=== PATIENT | male | born 1985 | race Caucasian/White ===

== ENCOUNTER 2017-06-15 10:40 | Emergency (ER) | payer OTHER ==
[2017-06-15 11:07] VITALS: RESP 18; TEMP 98
[2017-06-15] MEDS ORDERED: HYDROcodone/APAP 5-325MG 1 EACH TAB PO STA (12:09)
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
[2017-06-15 13:17] VITALS: BP 117/68; PULSE 72
== END 2017-06-15 13:17 | disposition home or self-care (01) ==
LOC: EC 10:40
DX: S02.40DA Maxillary fracture, left side, initial encounter for closed fracture (principal); S02.40FA Zygomatic fracture, left side, initial encounter for closed fracture; F17.200 Nicotine dependence, unspecified, uncomplicated; Z91.041 Radiographic dye allergy status; Z98.890 Other specified postprocedural states; Y04.0XXA Assault by unarmed brawl or fight, initial encounter
CPT/HCPCS: 70450; 70486; 72125; 99284

== ENCOUNTER 2017-06-19 12:28 | Emergency (ER) | payer OTHER ==
[2017-06-19 12:32] VITALS: BP 138/83; PULSE 59; RESP 18; TEMP 99.2
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
== END 2017-06-19 12:51 | disposition home or self-care (01) ==
LOC: EC 12:28
DX: S02.40 Fracture of malar, maxillary and zygoma bones, unspecified (principal); S02.402 Zygomatic fracture, unspecified side; Z76.0 Encounter for issue of repeat prescription; F17.200 Nicotine dependence, unspecified, uncomplicated; Z91.041 Radiographic dye allergy status; Y09 Assault by unspecified means
CPT/HCPCS: 99282

== ENCOUNTER 2017-07-05 22:11 | Emergency (ER) | payer OTHER ==
[2017-07-05 22:24] VITALS: BP 131/63; PULSE 89; RESP 20; TEMP 98.4
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
[2017-07-05] MEDS ORDERED: TOPICAL SKIN ADHESIVE 1 EACH AMP TOPICAL ONE (22:47)
--- NOTE | 2017-07-05 23:21 | XR ---
EXAM: XR Left Finger(s), 2 or More Views CLINICAL HISTORY: Reason: Pain TECHNIQUE: Frontal, lateral and oblique views of finger(s) of the left hand. COMPARISON: No relevant prior studies available. FINDINGS: Bones/joints: Unremarkable. No acute fracture. No dislocation. Soft tissues: Unremarkable. No radiopaque foreign body. Other findings: Metal ring noted about the proximal index finger. IMPRESSION: No acute findings.
== END 2017-07-05 22:57 | disposition home or self-care (01) ==
LOC: EC 22:11
DX: S61.211A Laceration without foreign body of left index finger without damage to nail, initial encounter (principal); F17.200 Nicotine dependence, unspecified, uncomplicated; Z91.040 Latex allergy status; W23.0XXA Caught, crushed, jammed, or pinched between moving objects, initial encounter
CPT/HCPCS: 12001; 99283

== ENCOUNTER 2019-05-23 19:55 | Emergency (ER) | payer OTHER ==
[2019-05-23] MEDS ORDERED: IBUPROFEN 600 MG TAB PO STA (20:13)
[2019-05-23] MEDS: ACETAMINOPHEN TAB 325 MG TAB PO STA ×2 (20:24→20:25)
--- NOTE | 2019-05-23 20:39 | XR ---
EXAMINATION TYPE: XR ankle complete RT DATE OF EXAM: 05/23/2019 COMPARISON: 11/05/2012 HISTORY: Ankle pain TECHNIQUE: 3 views FINDINGS: There is soft tissue swelling over the lateral malleolus. I see no fracture nor dislocation . IMPRESSION: Soft tissue swelling. No fracture.
--- NOTE | 2019-05-23 20:40 | XR ---
EXAMINATION TYPE: XR foot complete RT DATE OF EXAM: 05/23/2019 COMPARISON: NONE HISTORY: Ankle pain TECHNIQUE: 3 views FINDINGS: Metatarsals are intact. I see no fracture nor dislocation. Joint spaces are normal. IMPRESSION: No fracture seen.
--- NOTE | 2019-05-23 20:56 | ED ---
Lower Extremity Injury HPI - General Source: patient Mode of arrival: ambulatory Limitations: physical limitation <Bria Duff - Last Filed: 05/24/19 20:19> <Jodie Chaney - Last Filed: 05/25/19 05:42> - General Chief Complaint: Extremity Injury, Lower Stated Complaint: Ankle injury Time Seen by Provider: 05/23/19 20:10 - History of Present Illness Initial Comments: 33-year-old male patient presents to the emergency department today for evaluation of right ankle pain. Patient states he is playing basketball earlier today when he twisted his ankle. Patient states this occurred approximately 2 hours ago. Patient states he is having swelling and pain to the ankle. He is able to ambulate. Denies any numbness or tingling to the foot. Denies any previous injury to this ankle. Denies taking any medication for his symptoms. Denies any other injuries. Patient denies any headache, neck pain, back pain, chest pain, shortness of breath, dizziness, weakness, abdominal pain, nausea, vomiting, or difficulties with bowel movements or urination. (Bria Duff) - Related Data Previous Rx's Medication Instructions Recorded Amoxicillin/Potassium Clav 1 each PO Q12HR #20 tab 06/15/17 [Augmentin 875-125 Tablet] Hydrocodone/Acetaminophen [[place] 1 each PO Q6HR PRN #20 tab 06/15/17 5-325] Hydrocodone/Acetaminophen [[place] 1 tab PO Q6HR PRN #15 tab 06/19/17 5-325] Ibuprofen [Motrin] 600 mg PO Q8HR PRN #30 tab 05/23/19 Allergies Allergy/AdvReac Type Severity Reaction Status Date / Time Iodinated Contrast- Oral and AdvReac Itching Verified 07/05/17 22:24 IV Dye [Iodinated Contrast Media - IV Dye] Review of Systems ROS Other: All systems not noted in ROS Statement are negative. <Bria Duff - Last Filed: 05/24/19 20:19> ROS Other: All systems not noted in ROS Statement are negative. <Jodie Chaney - Last Filed: 05/25/19 05:42> ROS Statement: Those systems with pertinent positive or pertinent negative responses have been documented in the HPI. Past Medical History Past Medical History: No Reported History History of Any Multi-Drug Resistant Organisms: MRSA Date of last positivie culture/infection: 06/22/16 MDRO Source:: RIGHT LEG Additional Past Surgical History / Comment(s): oral/jaw surgery Past Psychological History: No Psychological Hx Reported Smoking Status: Current some day smoker Past Alcohol Use History: Occasional Past Drug Use History: Marijuana <Bria Duff - Last Filed: 05/24/19 20:19> General Exam Limitations: physical limitation General appearance: alert, in no apparent distress, other (Physical well- developed, well-nourished adult male patient in no acute distress. Vital signs upon presentation are temperature 97.6F, pulse 105, respirations 16, blood pressure 138/81, pulse ox 97% on room air.) Respiratory exam: Present: normal lung sounds bilaterally. Absent: respiratory distress, wheezes, rales, rhonchi, stridor Cardiovascular Exam: Present: regular rate, normal rhythm, normal heart sounds. Absent: systolic murmur, diastolic murmur, rubs, gallop, clicks Extremities exam: Present: full ROM, tenderness (Tenderness over the right lateral malleolus), normal capillary refill, other (Swelling surrounding the right lateral malleolus. Mild fifth metatarsal tenderness. Skin to the foot is pink, warm, and dry. Cap refills less than 3 seconds. Pedal pulses 2+ and equal bilaterally.). Absent: normal inspection, pedal edema, joint swelling, calf tenderness Neurological exam: Present: alert, oriented X3, CN II-XII intact Psychiatric exam: Present: normal affect, normal mood Skin exam: Present: warm, dry, intact, normal color. Absent: rash <Bria Duff - Last Filed: 05/24/19 20:19> Course Vital Signs 05/23/19 05/23/19 19:57 21:14 Temperature 97.6 F 98.0 F Pulse Rate 105 H 75 Respiratory 16 18 Rate Blood Pressure 138/81 135/85 O2 Sat by Pulse 97 98 Oximetry Medical Decision Making - Radiology Data Radiology results: report reviewed, image reviewed <Bria Duff M - Last Filed: 05/24/19 20:19> <Jodie Chaney - Last Filed: 05/25/19 05:42> - Medical Decision Making 33-year-old male patient presents to the emergency department today for evaluation of right ankle pain and swelling after a twisting injury while playing basketball. Physical examination did reveal soft tissue swelling and tenderness surrounding the right lateral malleolus. There is some mild fifth metatarsal tenderness. X-rays of the right ankle and foot were obtained and showed no acute fractures. Patient was placed in ankle stirrup splint. He is instructed regarding ice and elevation. He is instructed to have repeat x-rays performed in 7-10 days if pain symptoms persist. He is instructed take Tylenol Motrin for pain control. Instructed to follow-up with his primary care physician for recheck in 1-2 days. Return parameters discussed in detail. He verbalizes understanding and agrees with this plan. (Bria Duff) I was available for consultation in the emergency department. The history and physical exam were done by the midlevel provider. I was consulted for this patient's care. I reviewed the case with the midlevel provider and based on their presentation of the patient, I agree with the assessment, medical decision making and plan of care as documented. Chart was dictated using [facility] dictation software. Attempts were made to correct any dictation errors however some typographical errors may persist. (Jodie Chaney) - Radiology Data 3 views of the right ankle are obtained. Report reviewed in its entirety. Impression by Dr. Kirby shows soft tissue swelling with no fracture. 3 views of the right foot are obtained. Report reviewed in its entirety. Impression by Dr. Kirby shows no fracture seen. (Bria Duff) Disposition Is patient prescribed a controlled substance at d/c from ED?: No Time of Disposition: 20:56 <Bria Duff - Last Filed: 05/24/19 20:19> <Jodie Chaney - Last Filed: 05/25/19 05:42> Clinical Impression: Right ankle sprain Disposition: HOME SELF-CARE Condition: Good Instructions (If sedation given, give patient instructions): Ankle Sprain (ED) Additional Instructions: Rest, ice, elevate the right ankle. Apply ice 20 minutes at a time at least 4 times daily. Take ibuprofen for pain control. Follow-up through primary care physician for recheck in 1-2 days. Have repeat x-rays performed in 7-10 days if pain symptoms persist. Return to the emergency department immediately for any new, worsening, or concerning symptoms Prescriptions: Ibuprofen [Motrin] 600 mg PO Q8HR PRN #30 tab PRN Reason: Pain Referrals: None,Stated [Primary Care Provider] - 1-2 days
[2019-05-23 21:15] VITALS: BP 135/85; PULSE 75; RESP 18; TEMP 98
== END 2019-05-23 21:15 | disposition home or self-care (01) ==
LOC: EC 19:55
DX: S93.401A Sprain of unspecified ligament of right ankle, initial encounter (principal); F17.200 Nicotine dependence, unspecified, uncomplicated; Z91.041 Radiographic dye allergy status; X50.1XXA Overexertion from prolonged static or awkward postures, initial encounter; Y93.67 Activity, basketball; Y92.310 Basketball court as the place of occurrence of the external cause
CPT/HCPCS: 99283

== ENCOUNTER 2021-11-30 22:07 | Emergency (ER) | payer OTHER ==
[2021-11-30 22:19] VITALS: BP 154/95; PULSE 104; RESP 20; TEMP 99.2
--- NOTE | 2021-11-30 22:35 | ED ---
Skin/Abscess/FB HPI - General Chief complaint: Skin/Abscess/Foreign Body Stated complaint: Abd.Infection Time Seen by Provider: 11/30/21 22:20 Source: patient Mode of arrival: ambulatory Limitations: no limitations - History of Present Illness Initial comments: 36-year-old male patient presents to the emergency department today for evaluation of possible infection to a tattoo to his lower abdomen. Patient states he got a tattoo couple of days ago. States today it started to become red and swollen. Denies significant pain. Denies any drainage. Denies fever or chills. States he has not been able to shower wash the area due to being stuck in the area, [place] is from out of town. He has not taken any medications. Denies history of diabetes or any immunosuppressive conditions. - Related Data Home Medications Medication Instructions Recorded Confirmed Gabapentin 800 mg PO TID 08/07/19 08/07/19 Previous Rx's Medication Instructions Recorded Amoxicillin/Potassium Clav 1 each PO Q12HR #20 tab 06/15/17 [Augmentin 875-125 Tablet] Hydrocodone/Acetaminophen [[place] 1 each PO Q6HR PRN #20 tab 06/15/17 5-325] Hydrocodone/Acetaminophen [[place] 1 tab PO Q6HR PRN #15 tab 06/19/17 5-325] Ibuprofen [Motrin] 600 mg PO Q8HR PRN #30 tab 05/23/19 Cephalexin [Keflex] 500 mg PO Q6HR #40 cap 11/30/21 Sulfamethoxazole/Trimethoprim 1 each PO BID #20 tablet 11/30/21 [Bactrim DS 800-160 mg] Allergies Allergy/AdvReac Type Severity Reaction Status Date / Time Iodinated Contrast Media AdvReac Itching Verified 11/30/21 22:19 [Iodinated Contrast Media - IV Dye] Review of Systems ROS Statement: Those systems with pertinent positive or pertinent negative responses have been documented in the HPI. ROS Other: All systems not noted in ROS Statement are negative. Past Medical History Past Medical History: No Reported History History of Any Multi-Drug Resistant Organisms: MRSA Date of last positivie culture/infection: 2013 MDRO Source:: leg, buttocks Past Surgical History: No Surgical Hx Reported Additional Past Surgical History / Comment(s): oral/jaw surgery Past Psychological History: No Psychological Hx Reported Smoking Status: Never smoker Past Alcohol Use History: Occasional Past Drug Use History: Marijuana General Exam Limitations: no limitations General appearance: alert, in no apparent distress Respiratory exam: Present: normal lung sounds bilaterally. Absent: respiratory distress, wheezes, rales, rhonchi, stridor Cardiovascular Exam: Present: regular rate, normal rhythm, normal heart sounds. Absent: systolic murmur, diastolic murmur, rubs, gallop, clicks GI/Abdominal exam: Present: soft, normal bowel sounds, other (There is mild surrounding erythema to a tattoo to the lower abdomen. No drainage.). Absent: distended, tenderness, guarding, rebound, rigid Course Vital Signs 11/30/21 22:16 Temperature 99.2 F Pulse Rate 104 H Respiratory 20 Rate Blood Pressure 154/95 O2 Sat by Pulse 99 Oximetry Medical Decision Making - Medical Decision Making 36-year-old male patient presented for evaluation of possibly infected tattoo. Physical examination did reveal mild surrounding erythema. No drainage. He is afebrile normal vital signs. We'll start Keflex and Bactrim. He does have history of MRSA. He will be discharged follow up with his primary care physician for recheck in 1-2 days. Return parameters were discussed in detail. He verbalizes understanding and agrees with this plan. My attending is Dr. Santos. Disposition Clinical Impression: Cellulitis of abdominal wall Disposition: HOME SELF-CARE Condition: Good Instructions (If sedation given, give patient instructions): Cellulitis (ED) Additional Instructions: Complete antibiotic prescription in full. Follow-up with primary care physician for recheck in 1-2 days. Return to the emergency department for any new, worsening, or concerning symptoms. Prescriptions: Sulfamethoxazole/Trimethoprim [Bactrim DS 800-160 mg] 1 each PO BID #20 tablet Cephalexin [Keflex] 500 mg PO Q6HR #40 cap Is patient prescribed a controlled substance at d/c from ED?: No Referrals: None,Stated [Primary Care Provider] - 1-2 days Time of Disposition: 22:34
[2021-11-30] MEDS: BACITRACIN OINT 1 EACH PACKET TOPICAL ONE (22:49)
[2021-11-30] MEDS: CEPHALEXIN 500MG STARTER PACK 4 CAP BTL PO STA (22:49)
[2021-11-30] MEDS: SULFAMETH-TMP DS STARTER PACK 2 TAB BTL PO STA (22:49)
== END 2021-11-30 22:51 | disposition home or self-care (01) ==
LOC: EC 22:07
DX: L03.311 Cellulitis of abdominal wall (principal); Z91.041 Radiographic dye allergy status; Z86.14 Personal history of Methicillin resistant Staphylococcus aureus infection
CPT/HCPCS: 99282

== ENCOUNTER 2024-03-19 12:47 | Emergency (ER) | payer OTHER ==
--- NOTE | 2024-03-19 12:53 | ED ---
General Adult HPI - General Chief complaint: Extremity Injury, Lower Stated complaint: L foot pain Time Seen by Provider: 03/19/24 12:53 Source: patient, RN notes reviewed Mode of arrival: ambulatory Limitations: no limitations - History of Present Illness Initial comments: This is a 38-year-old male who presents emergency department chief complaint of pain and bruising to his left great toe for the last 2 weeks after wearing an ill-fitting pair of shoes. Additionally, patient states that he dropped a box on the toe resulting in a split of the nail with release of purulent material and blood about a week ago. He states that there has been some erythema spreading proximally foot over a week ago but has not subsided. He has pain with ambulation. Denies feelings of nausea, fevers, weakness, fatigue. Denies recent antibiotic use. - Related Data Home Medications Medication Instructions Recorded Confirmed Gabapentin 800 mg PO TID 08/07/19 08/07/19 Previous Rx's Medication Instructions Recorded Amoxicillin/Potassium Clav 1 each PO Q12HR #20 tab 06/15/17 [Augmentin 875-125 Tablet] Hydrocodone/Acetaminophen [[place] 1 each PO Q6HR PRN #20 tab 06/15/17 5-325] Hydrocodone/Acetaminophen [[place] 1 tab PO Q6HR PRN #15 tab 06/19/17 5-325] Ibuprofen [Motrin] 600 mg PO Q8HR PRN #30 tab 05/23/19 Cephalexin [Keflex] 500 mg PO Q6HR #40 cap 11/30/21 Sulfamethoxazole/Trimethoprim 1 each PO BID #20 tablet 11/30/21 [Bactrim DS 800-160 mg] Clindamycin [Cleocin] 150 mg PO Q6H #28 capsule 03/19/24 Allergies Allergy/AdvReac Type Severity Reaction Status Date / Time Iodinated Contrast Media AdvReac Itching Verified 11/30/21 22:19 [Iodinated Contrast Media - IV Dye] Review of Systems ROS Statement: Those systems with pertinent positive or pertinent negative responses have been documented in the HPI. ROS Other: All systems not noted in ROS Statement are negative. Past Medical History Past Medical History: No Reported History History of Any Multi-Drug Resistant Organisms: MRSA Date of last positivie culture/infection: 2013 MDRO Source:: leg, buttocks Past Surgical History: No Surgical Hx Reported Additional Past Surgical History / Comment(s): oral/jaw surgery Past Psychological History: No Psychological Hx Reported Smoking Status: Never smoker Past Alcohol Use History: Occasional Past Drug Use History: Marijuana General Exam Limitations: no limitations General appearance: alert, in no apparent distress Head exam: Present: atraumatic, normocephalic, normal inspection Eye exam: Present: normal appearance, PERRL, EOMI. Absent: scleral icterus, conjunctival injection, periorbital swelling ENT exam: Present: normal exam, mucous membranes moist Neck exam: Present: normal inspection. Absent: tenderness, meningismus, lymphadenopathy Respiratory exam: Present: normal lung sounds bilaterally. Absent: respiratory distress, wheezes, rales, rhonchi, stridor Cardiovascular Exam: Present: regular rate, normal rhythm, normal heart sounds. Absent: systolic murmur, diastolic murmur, rubs, gallop, clicks GI/Abdominal exam: Present: soft, normal bowel sounds. Absent: distended, tenderness, guarding, rebound, rigid Left Foot/Toe exam: Present: erythema, nail avulsion, subungual hematoma. Absent: crepitus Back exam: Present: normal inspection Neurological exam: Present: alert, oriented X3, CN II-XII intact Psychiatric exam: Present: normal affect, normal mood Skin exam: Present: warm, dry, intact, normal color. Absent: rash Course Vital Signs 03/19/24 12:50 Temperature 98.1 F Pulse Rate 95 Respiratory 16 Rate Blood Pressure 101/68 O2 Sat by Pulse 98 Oximetry Medical Decision Making - Medical Decision Making Was pt. sent in by a medical professional or institution (, PA, [employer] ETL DEVELOPER, urgent care, hospital, or correction...) When possible be specific @ -No Did you speak to anyone other than the patient for history (EMS, parent, family, police, friend...)? What history was obtained from this source @ -No Did you review nursing and triage notes (agree or disagree)? Why? @ -I reviewed and agree with nursing and triage notes Were old charts reviewed (outside hosp., previous admission, EMS record, old EKG, old radiological studies, urgent care reports/EKG's, correction records)? Report findings @ -No old charts were reviewed Differential Diagnosis (chest pain, altered mental status, abdominal pain women, abdominal pain men, vaginal bleeding, weakness, fever, dyspnea, syncope, headache, dizziness, GI bleed, back pain, seizure, CVA, palpatations, mental health, musculoskeletal)? @ -subungual hematoma, paronychia, felon, cellulitis, this list is not all in clusive EKG interpreted by me (3pts min.). @ -None X-rays interpreted by me (1pt min.). @ -None done CT interpreted by me (1pt min.). @ -None done U/S interpreted by me (1pt. min.). @ -None done What testing was considered but not performed or refused? (CT, X-rays, U/S, labs)? Why? @ -Basic laboratory testing and imaging were considered but deferred at this time due to patient symptoms being localized to the affected toe with minimal concern for bacteremia or sepsis. Due to injury occurring 2 weeks ago minimal concern for fracture or osteomyelitis. What meds were considered but not given or refused? Why? @ -None Did you discuss the management of the patient with other professionals (professionals i.e. , PA, [employer] E[employer] DEVELOPER, lab, RT, psych nurse, health care social worker, food service driver, teacher, sanitation officer, rifle case repairer)? Give summary @ -No Was smoking cessation discussed for >3mins.? @ -No Was critical care preformed (if so, how long)? @ -No Were there social determinants of health that impacted care today? How? (Homelessness, low income, unemployed, alcoholism, drug addiction, transportation, low edu. Level, literacy, decrease access to med. care, alf, rehab)? @ -No Was there de-escalation of care discussed even if they declined (Discuss DNR or withdrawal of care, Hospice)? DNR status @ -No What co-morbidities impacted this encounter? (DM, HTN, Smoking, COPD, CAD, Cancer, CVA, ARF, Chemo, Hep., AIDS, mental health diagnosis, sleep apnea, morbid obesity)? @ -None Was patient admitted / discharged? Hospital course, mention meds given and route, prescriptions, significant lab abnormalities, going to OR and other pertinent info. @ -Discharge. 38-year-old male chief complaint of subungual hematoma of his left toe. On examination patient noted to have bruising of the left great toenail with concern for possible paronychia. There is also a split of the patient's great toenail. At time with electric cautery was unsuccessful for release of purulent material and/or blood. Patient will be sent home with oral antibiotics and provided with referral to podiatry as needed. Patient expressed understanding. Discussed tricked return parameters. Case discussed with Dr. Riggs Undiagnosed new problem with uncertain prognosis? @ -No Drug Therapy requiring intensive monitoring for toxicity (Heparin, Nitro, Insulin, Cardizem)? @ -No Were any procedures done? @ -Electrocauterization of the left great toenail Diagnosis/symptom? @ -Subungual hematoma, paronychia Acute, or Chronic, or Acute on Chronic? @ -Acute Uncomplicated (without systemic symptoms) or Complicated (systemic symptoms)? @ -uncomplicated Side effects of treatment? @ -No Exacerbation, Progression, or Severe Exacerbation? @ -No Poses a threat to life or bodily function? How? (Chest pain, [place], [place], pneumonia, PE, COPD, DKA, ARF, appy, cholecystitis, CVA, Diverticulitis, Homicidal, Suicidal, threat to staff... and all critical care pts) @ -No Disposition Clinical Impression: Paronychia, Subungual hematoma of toe of left foot Narrative: Please return to the Emergency Department if symptoms worsen or any other concerns. Complete full course of antibiotics as prescribed. Follow-up as needed with podiatry referral. Disposition: HOME SELF-CARE Condition: Good Prescriptions: Clindamycin [Cleocin] 150 mg PO Q6H #28 capsule Is patient prescribed a controlled substance at d/c from ED?: No Referrals: None,Stated [Primary Care Provider] - 1-2 days Giancarlo Molina DPM [STAFF PHYSICIAN] - 1-2 days Time of Disposition: 13:13
[2024-03-19] MEDS: IBUPROFEN 800 MG TAB PO STA (13:20)
[2024-03-19 13:49] VITALS: BP 101/68; PULSE 95; RESP 16; TEMP 98.1
== END 2024-03-19 13:28 | disposition home or self-care (01) ==
LOC: EC 12:47
DX: S90.122A Contusion of left lesser toe(s) without damage to nail, initial encounter (principal); Z91.041 Radiographic dye allergy status; X58.XXXA Exposure to other specified factors, initial encounter
CPT/HCPCS: 99283